=== PATIENT | male | born 1980 | race Caucasian/White ===

== ENCOUNTER 2019-02-07 16:42 | Outpatient (REF) | payer MEDICAID, SELFPAY ==
[2019-02-07 21:08] LABS: Cholesterol 186 mg/dL (50-200); HDL Cholesterol 53 mg/dL (40-60); LDL CHOLESTEROL 104 mg/dL (<100); Triglyceride 169 mg/dL (30-150)
[2019-02-09 09:38] LABS: HBs Antibody, Quant <3.1 mIU/mL; Hepatitis B Surface Ab Negative
== END 2019-02-07 17:02 ==
LOC: NCHCN 16:42
PROVIDERS: PCP Registered Nurse; Visit Provider Registered Nurse
DX: Z11.59 Encounter for screening for other viral diseases (principal); Z13.220 Encounter for screening for lipoid disorders; Z00.00 Encounter for general adult medical examination without abnormal findings
CPT/HCPCS: 80061; 83721; 86706

== ENCOUNTER 2024-01-04 15:41 | Outpatient (REF) | payer MEDICAID, SELFPAY ==
[2024-01-04 21:48] LABS: Calculated LDL 74 mg/dL (<100); Cholesterol 164 mg/dL (<200); HDL Cholesterol 82 mg/dL (40-60); Triglyceride 44 mg/dL (<150)
[2024-01-04 21:50] LABS: Hemoglobin A1C 5.4 % (<5.7)
[2024-01-05 19:20] LABS: HBs Antibody, Quant <3.1 mIU/mL (See Note); Hepatitis B Surface Ab Negative (See Note)
[2024-01-05 21:51] LABS: HIV-1/2 Ag & Ab Screen Negative (Negative)
[2024-01-05 21:55] LABS: Hep B Core Antibody Negative (Negative)
[2024-01-06 08:02] LABS: Hepatitis B Surface Ag Negative (Negative)
[2024-01-06 09:25] LABS: Hepatitis C Ab w Rflx HCV PCR Negative (Negative)
== END 2024-01-04 15:42 | disposition home or self-care (01) ==
LOC: NCHCN 15:41
PROVIDERS: PCP Registered Nurse; Visit Provider Registered Nurse
DX: F11.90 Opioid use, unspecified, uncomplicated (principal); Z13.220 Encounter for screening for lipoid disorders; Z13.1 Encounter for screening for diabetes mellitus; Z11.4 Encounter for screening for human immunodeficiency virus [HIV]; Z11.59 Encounter for screening for other viral diseases
CPT/HCPCS: 80061; 86704; 86706; 86803; 87340; 87389; 83036

== ENCOUNTER 2024-07-29 16:32 | Outpatient (REF) | payer MEDICAID, SELFPAY ==
[2024-07-29 22:10] LABS: ALT 30 U/L (16-63); AST 25 U/L (15-37); Alkaline Phosphatase 108 U/L (46-116); Anion Gap 8.3 mmol/L (3-11); BUN 24 mg/dL (7-18); Bilirubin, Total 0.26 mg/dL (0.2-1.0); CO2 27.7 mmol/L (21.0-32.0); CREATININE 0.9 mg/dL (0.70-1.30); Calcium 9.4 mg/dL (8.5-10.1); Chloride 105 mmol/L (98-107); Estimated GFR 108.68 (mL/min/1.73m2); Glucose 92 mg/dL (74-106); Potassium 3.9 mmol/L (3.5-5.1); Sodium 141 mmol/L (136-145); Total Protein 7.6 g/dL (6.4-8.2)
[2024-08-01 09:33] LABS: Hepatitis C Ab w Rflx HCV PCR Negative (Negative)
[2024-08-01 10:05] LABS: HIV-1/2 Ag & Ab Screen Negative (Negative)
[2024-08-12 15:34] LABS: Amphetamines Negative ng/mL (Cutoff: 20); Methamphetamine Negative ng/mL (Cutoff: 20)
[2024-08-12 15:35] LABS: Barbiturates Negative ng/mL (Cutoff: 50); Benzodiazepines Negative ng/mL (Cutoff: 50); Methadone Negative ng/mL (Cutoff: 25); Opiates Negative ng/mL (Cutoff: 20); Phencyclidine Negative ng/mL (Cutoff: 10)
[2024-08-12 15:37] LABS: Buprenorphine Positive ng/mL (Cutoff: 1); Cocaine Positive ng/mL (Cutoff: 20)
[2024-08-12 16:15] LABS: Benzoylecgonine (Coc Met),S/P 45 ng/mL
[2024-08-12 16:16] LABS: Norbuprenorphine,S/P 14.1 ng/mL
== END 2024-07-29 16:33 | disposition home or self-care (01) ==
LOC: NCHCN 16:32
PROVIDERS: PCP Registered Nurse; Visit Provider Family Medicine
DX: F11.20 Opioid dependence, uncomplicated (principal)
CPT/HCPCS: 80053; 80348; 80353; 86803; 87389; 80307; G0480

== ENCOUNTER 2024-08-31 17:44 | Outpatient (REF) | payer MEDICAID, SELFPAY ==
[2024-08-31 21:19] LABS: ALT 36 U/L (16-63); AST 24 U/L (15-37); Albumin 3.6 g/dL (3.4-5.0); Alkaline Phosphatase 100 U/L (46-116); Bilirubin, Direct 0.1 mg/dL (0.0-0.2); Bilirubin, Total 0.29 mg/dL (0.2-1.0); Total Protein 7.2 g/dL (6.4-8.2)
== END 2024-08-31 17:45 | disposition home or self-care (01) ==
LOC: NCHCN 17:44
PROVIDERS: PCP Registered Nurse; Visit Provider Family Medicine
DX: F11.90 Opioid use, unspecified, uncomplicated (principal)
CPT/HCPCS: 80076

== ENCOUNTER 2025-04-07 17:57 | Outpatient (REF) | payer MEDICAID, SELFPAY ==
[2025-04-07 21:30] LABS: ALT 23 U/L (16-63); AST 29 U/L (15-37); Albumin 4.2 g/dL (3.4-5.0); Alkaline Phosphatase 111 U/L (46-116); Bilirubin, Direct 0.1 mg/dL (0.0-0.2); Bilirubin, Total 0.3 mg/dL (0.2-1.0); Total Protein 8.1 g/dL (6.4-8.2)
== END 2025-04-07 17:58 | disposition home or self-care (01) ==
LOC: NCHCN 17:57
PROVIDERS: PCP Registered Nurse; Visit Provider Family Medicine
DX: F11.21 Opioid dependence, in remission (principal)
CPT/HCPCS: 80076